=== PATIENT | male | born 1990 | race Caucasian/White ===

== ENCOUNTER 2018-02-26 15:15 | Inpatient (IN) | payer MEDICAID ==
[2018-02-26] MEDS ORDERED: Sodium Chloride 0.9% 1,000 ML IV ONE (15:34)
--- NOTE | 2018-02-26 15:42 | ED Physician Chart ---
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 Pain, A/N/V/D/C, fever, chills, or urinary s/s Historian:: Patient, Friend Review:: Nurse's Note Reviewed ED Review of Systems - Review of Systems General/Constitutional: No fever, No chills, No weight loss, No weakness, No diaphoresis, No edema, No loss of appetite Skin: No skin lesions, No rash, No bruising Head: No headache, Light headed Eyes: No loss of vision, No pain, No diplopia ENT: No earache, No nasal drainage, No sore throat, No tinnitus Neck: No neck pain, No swelling, No thyromegaly, No stiffness, No mass noted Cardio Vascular: No chest pain, No palpitations, No PND, No orthopnea, No edema Pulmonary: No SOB, No cough, No sputum, No wheezing GI: No nausea, No vomiting, No diarrhea, No pain, No melena, No hematochezia, No constipation, No hematemesis G/U: No dysuria, No frequency, No hematuria, No nacturia Musculoskeletal: No bone or joint pain, No back pain, No muscle pain Endocrine: No polyuria, No polydipsia Psychiatric: No prior psych history, No depression, No anxiety, No suicidal ideation, No homicidal ideation, No auditory hallucination, No visual hallucination Hematopoietic: No bruising, No lymphadenopathy Allergic/Immuno: No urticaria, No angioedema Neurological: No syncope, No focal symptoms, Weakness, No paresthesia, No headache, No seizure, Dizziness, No confusion, Vertigo ED Past Medical History - Past Medical History Obtainable: Yes Past Medical History: No significant medical hx Family History: None Social History: Smoker, Alcohol, No Drug Use, Single, Employed Surgical History: None Psychiatricy History: None Medication: Reviewed Family Medical History - Family Member Mother History Unknown: Yes ED Physical Exam - Physical Examination General/Constitutional: Awake, Well-developed, well-nourished, Alert, No distress, GCS 15, Non-toxic appearing, Ambulatory Head: Atraumatic Eyes: Lids, conjuctiva normal, PERRL, EOMI Skin: Nl inspection, No rash, No skin lesions, No ecchymosis, No lymphadenopathy Other Skin comments:: Poor Turgor with Dry Mucous Membranes ENMT: External ears, nose nl, TM canals nl, Nasal exam nl, Lips, teeth, gums nl , Oropharynx nl, Tonsils nl Neck: Nontender, Full ROM w/o pain, No JVD, No nuchal rigidity, No bruit, No mass, No stridor Respiratory: Nl effort/Exclusion, Clear to Auscultation, No Wheeze/Rhonchi/Rales Cardio Vascular: RRR, No murmur, gallop, rubs, NL S1 S2 GI: No tenderness/rebounding/guarding, No organomegaly, No hernia, Normal BS's, Nondistended, No mass/bruits, No McBurney tenderness : No CVA tenderness Extremities: No tenderness or effusion, Full ROM, normal strength in all extremities, No edema, Normal digits & nails Neuro/Psych: Alert/oriented, DTR's symmetric, Normal sensory exam, Normal motor strength, Judgement/insight normal, Mood normal, Normal gait, No focal deficits Misc: Normal back, No paraspinal tenderness ED Labs/Radiology/EKG Results - Lab Results Comments:: ABG: + hyperventilation; Ca+: 10.4 - Radiology Results Comments:: CXR: NAD - EKG Interpretations EKG Time:: 15:41 Rate & Rhythm: 96; NSR Comments:: [place]; non-specific st-t changes ED Septic Shock - . Is Septic Shock (SBP<90, OR Lactate>4 mmol\L) present?: No ED Reassessment (Disposition) - Reassessment Reassessment Condition:: Improved - Diagnosis Diagnosis:: Dx: Hyperventilation Syndrome; Anxiety Reaction; Alcohol Withdrawal; Hypercalcemia; Dehydration; Weakness; Dizziness; Vertigo - Aftercare/Follow up Instructions Aftercare/Follow-Up Instructions:: Counseled pt regarding lab results/diagnosis & need follow up, Counseled pt & family regarding lab results/diagnosis & need follow up - Patient Disposition Discharge/Transfer:: Acute Care w/in this hosp Accepting Physician:: Dr. Bush Time Called:: 1744 Time Responded:: 17:45 Admitted to:: Telemetry Spoke to:: Dr. Bush Admitting Medical Physician:: Dr. Bush Condition at Disposition:: Stable, Improved
[2018-02-26 16:03] LABS: % BASOPHILS 0.1 % (0.0-2.0); % EOSINOPHILS 1.2 % (0.0-5.0); % LYMPHOCYTES 22.4 % (20.0-50.0); % MONOCYTES 7.4 % (2.0-10.0); % NEUTROPHILS 68.9 % (40.0-80.0); EOSINOPHILE ABSOLUTE 0.1 Th/cmm (0.1-0.4); HEMATOCRIT 48.9 % (41.0-60); HEMOGLOBIN 16.8 gm/dL (12-16); LYMPHOCYTE ABSOLUTE 1.5 Th/cmm (1.5-3.0); MEAN CELL VOLUME 89.2 fl (80-99); MEAN CORPUSCULAR HEMOGLOBIN 30.5 pg (26.0-30.0); MEAN CORPUSCULAR HGB CONC 34.2 pg (28.0-36.0); MEAN PLATELET VOLUME 8.3 fl; MONOCYTE ABSOLUTE 0.5 Th/cmm (0.3-1.0); NEUTROPHILE ABSOLUTE 4.4 Th/cmm (1.8-8.0); PLATELET COUNT 258 Th/cmm (150-400); RED BLOOD COUNT 5.49 Mil/cmm (4.30-5.70); RED CELL DISTRIBUTION WIDTH 13.3 % (11.5-20.0); WHITE BLOOD COUNT 6.5 Th/cmm (4.8-10.8)
[2018-02-26 16:11] LABS: INR 0.9 (0.5-1.4); PROTHROMBIN TIME (TEST) 9.3 SECONDS (9.5-11.5)
[2018-02-26 16:18] LABS: ALB/GLOB RATIO 1.6 (1.0-1.8); ALBUMIN 4.7 gm/dL (4.2-5.5); ALKALINE PHOSPHATASE 54 U/L (34-104); AMYLASE SERUM 42 U/L (29-103); ANION GAP 14.7 (7.0-16.0); BILIRUBIN,TOTAL 0.7 mg/dL (0.3-1.0); BUN - UREA NITROGEN 10 mg/dL (7-25); CALCIUM SERUM 10.4 mg/dL (8.6-10.3); CARBON DIOXIDE 24.9 mEq/L (21.0-31.0); CHLORIDE 103 mEq/L (98-107); CHOLESTEROL 134 mg/dL (<200); CREATININE KINASE 261 U/L (30-223); GFR AFRICAN-AMERICAN > 60.0 ml/min (>90); GFR NON AFRICAN-AMERICAN > 60.0 ml/min; GLUCOSE 99 mg/dL (70-105); HDL -HIGH DENSITY LIPOPROTEIN 66 mg/dL (23-92); LIPASE 11 U/L (11-82); POTASSIUM SERUM 3.6 mEq/L (3.5-5.1); SGOT 23 U/L (13-39); SGPT/ALT 14 U/L (7-52); SODIUM SERUM 139 mEq/L (136-145); TOTAL PROTEIN,SERUM 7.7 gm/dL (6.0-8.3); TRIGLYCERIDES 47 mg/dL (<150)
[2018-02-26 16:33] LABS: pH 7.58 (7.35-7.45)
[2018-02-26 16:34] LABS: ALLEN TEST P
[2018-02-26 16:40] LABS: DDIMER QUANT < 100 ng/mL (100-400)
[2018-02-26] MEDS ORDERED: Multivitamin Inj 10 ML, Thiamine HCL 100 MG, Magnesium Sulfate 2 GM, Folic Acid 1 MG in... IV ONE (17:55)
[2018-02-26 20:08] LABS: URINE MICROSCOPIC INDICATED? YES; URINE SOURCE CLEAN C
--- NOTE | 2018-02-26 20:12 | History and Physical ---
History of Present Illness - HPI Chief Complaint: Weakness HPI: 27 y/o male who presents to [facility] ER for one day history of weakness and fatigue, near-syncopal episode. Patient to ETOH use. last drink was 12 hours ago. Patient has increased anxiety and displays withdrawal symptomology. Denies H/as, S/T, neck pain, C/P, SOB, Abd. Pain, A/N/V/D/C, fever , chills, or urinary s/s No PMH Family History: None Social History: Smoker, Alcohol, No Drug Use, Single, Employed Surgical History: None Labs WBC 6.5 H/H 16.8/48.9 plat 258K Na 139 K 3.6 Bun/Cr 10/1.0 glu 99 CK 261 Trop <0.01 BNP <5.0 Chol 134 LDL 57 HDL 66 Amylase 42 Lipase 11 UDS was negative ETOH level was <10 Patient was subsequently admitted to telemetry bed for further evaluation and treatment. 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 Pertinent Hx GI: Report: No Pertinent Hx Psych: Report: Anxiety Musculoskeletal: Report: No Pertinent Hx Rheumatologic: Report: No pertinent Hx Infectious Disease: Report: No Pertinent Hx Renal/: Report: No Pertinent Hx Endocrine: Report: No Pertinent Hx Dermatology: Report: No Pertinent Hx - Past Surgical History Past Surgical History: No pertinent Hx Family Medical History - Family Member Mother History Unknown: Yes Social History Smoke: No Alcohol: Occassional Drugs: None Lives: With Family - Allergies Allergies/Adverse Reactions: Allergies Allergy/AdvReac Type Severity Reaction Status Date / Time diphenhydramine Allergy Verified 02/26/18 16:48 [From Benadryl] Review of Systems - Review of Systems Constitutional: Report: No Significant Eyes: Report: No Significant ENT: Report: No Significant Respiratory: Report: SOB with Excertion Cardiovascular: Report: Chest Pain, Palpitations Gastrointestinal: Report: No Significant Genitourinary: Report: No Significant Musculoskeletal: Report: No Significant Skin: Report: No Significant Neurological: Report: No Significant Physical Exam - Physical Exam HEENT: Report: Ears Nose Throat within normal limits, Pharnyx within normal limits Neck: Report: Within normal limits Cardiovascular Systems: Report: +s1/s2 noted, Regular, Rate and Rhythm, no murmurs noted Respiratory: Report: Breath Sounds are within normal limits, Clear to Auscultation of lung pierson Abdomen: Report: Non-tender to palpation Back: Report: Inspection of back is within normal limits. Extremities: Report: Non-tender to palpation. Skin: Report: Color of skin is within normal limits Neuro/Psych: Report: Mood affect is within normal limits, A+Ox3, CN II-XII intact - Assessment Assessment: Current Active Problems Problem Status Onset SEVERE DYSPNEA WITH DIAPHORESIS Acute Anxiety disorder possible Alcohol Withdrawal Hyperventilation Syndrome Dehydration Hypercalcemia Weakness Fatigue Dizziness - Plan Plan: IV hydration Ativan PRN Repeat ETOH level. Psychiatric evaluation
[2018-02-26 20:25] LABS: URINE BILIRUBIN NEGATIVE (NEGATIVE); URINE BLOOD NEGATIVE (NEGATIVE); URINE CLARITY CLEAR (CLEAR); URINE COLOR YELLOW; URINE GLUCOSE (UA) NEGATIVE (NEGATIVE); URINE KETONE NEGATIVE (NEGATIVE); URINE LEUKOCYTE ESTERASE NEGATIVE (NEGATIVE); URINE NITRATE NEGATIVE (NEGATIVE); URINE PH 7.5 (4.6 - 8.0); URINE PROTEIN NEGATIVE (NEGATIVE); URINE UROBILINOGEN 0.2 E.U./dL (0.2 - 1.0)
[2018-02-26 20:36] LABS: AMPHETAMINE URINE NEGATIVE (NEGATIVE); BARBITURATES URINE NEGATIVE (NEGATIVE); BENZODIAZEPINES QUAL URINE NEGATIVE (NEGATIVE); CANNABINOID THC NEGATIVE (NEGATIVE); COCAINE METABOLITE QUAL URINE NEGATIVE (NEGATIVE); METHADONE URINE NEGATIVE (NEGATIVE); METHAMPHETAMINES QUAL URINE NEGATIVE (NEGATIVE); OPIATES (MORPHINE) QUAL. URINE NEGATIVE (NEGATIVE); PHENCYCLIDINE (PCP) URINE NEGATIVE (NEGATIVE); TRICYCLICS (TCA) QUAL. URINE NEGATIVE (NEGATIVE)
[2018-02-26] MEDS: D5-0.45NS w/20 mEq KCL 1,000 ML IV SCH (20:58)
[2018-02-26 21:28] LABS: URINE BACTERIA NONE SEEN /hpf (NONE SEEN); URINE EPITHELIAL CELLS NONE SEEN /lpf (FEW); URINE RBC NONE SEEN /hpf (0-5); URINE WBC NONE SEEN /hpf (0-5)
[2018-02-27] MEDS ORDERED: Thiamine 100 mg/mL 2mL Vial ONE (01:56)
[2018-02-27] MEDS ORDERED: Multivitamin Inj 10 mL Vial IV ONE (01:58)
[2018-02-27 03:06] VITALS: BP 126/70
[2018-02-27] MEDS: Multivitamin Inj 10 ML, Thiamine HCL 100 MG, Magnesium Sulfate 2 GM, Folic Acid 1 MG in... IV SCH (04:24)
[2018-02-27 07:31] LABS: % BASOPHILS 0.2 % (0.0-2.0); % EOSINOPHILS 4.9 % (0.0-5.0); % MONOCYTES 10.8 % (2.0-10.0); % NEUTROPHILS 55.1 % (40.0-80.0); EOSINOPHILE ABSOLUTE 0.3 Th/cmm (0.1-0.4); HEMOGLOBIN 14.3 gm/dL (12-16); LYMPHOCYTE ABSOLUTE 1.8 Th/cmm (1.5-3.0); MEAN CELL VOLUME 88.1 fl (80-99); MEAN CORPUSCULAR HEMOGLOBIN 30.2 pg (26.0-30.0); MEAN CORPUSCULAR HGB CONC 34.3 pg (28.0-36.0); MEAN PLATELET VOLUME 8.8 fl; MONOCYTE ABSOLUTE 0.7 Th/cmm (0.3-1.0); NEUTROPHILE ABSOLUTE 3.4 Th/cmm (1.8-8.0); RED BLOOD COUNT 4.74 Mil/cmm (4.30-5.70); RED CELL DISTRIBUTION WIDTH 13.6 % (11.5-20.0); WHITE BLOOD COUNT 6.2 Th/cmm (4.8-10.8)
[2018-02-27 07:39] LABS: HEMATOCRIT 41.8 % (41.0-60); PLATELET COUNT 198 Th/cmm (150-400)
[2018-02-27 07:49] LABS: ALB/GLOB RATIO 1.6 (1.0-1.8); ALBUMIN 3.6 gm/dL (4.2-5.5); ALKALINE PHOSPHATASE 41 U/L (34-104); ANION GAP 6.6 (7.0-16.0); BILIRUBIN,TOTAL 0.9 mg/dL (0.3-1.0); BUN - UREA NITROGEN 13 mg/dL (7-25); CALCIUM SERUM 8.9 mg/dL (8.6-10.3); CARBON DIOXIDE 27.3 mEq/L (21.0-31.0); CHLORIDE 108 mEq/L (98-107); GFR AFRICAN-AMERICAN > 60.0 ml/min (>90); GFR NON AFRICAN-AMERICAN > 60.0 ml/min; GLUCOSE 100 mg/dL (70-105); POTASSIUM SERUM 3.9 mEq/L (3.5-5.1); SGOT 17 U/L (13-39); SGPT/ALT 11 U/L (7-52); SODIUM SERUM 138 mEq/L (136-145); TOTAL PROTEIN,SERUM 5.9 gm/dL (6.0-8.3)
--- NOTE | 2018-02-27 08:17 | Diagnostic Imaging Report ---
Portable chest x-ray Time: 1540 History: Chest pain Allowing for portable technique the heart size is normal. No focal pulmonary parenchymal processes. No hilar or mediastinal abnormalities. Impression: No acute abnormalities.
--- NOTE | 2018-02-27 08:23 | General Progress Note ---
Subjective - Review of Systems Service Date: 02/27/18 Subjective: Patient was seen and examined. No acute distress. Patient feels better today. less anxiety today. Objective - Results Result Diagrams: 02/27/18 06:50 02/26/18 15:50 Recent Labs: Laboratory Last Values WBC 6.2 Th/cmm (4.8-10.8) 02/27/18 06:50 RBC 4.74 Mil/cmm (4.30-5.70) 02/27/18 06:50 Hgb 14.3 gm/dL (12-16) 02/27/18 06:50 Hct 41.8 % (41.0-60) D 02/27/18 06:50 MCV 88.1 fl (80-99) 02/27/18 06:50 MCH 30.2 pg (26.0-30.0) H 02/27/18 06:50 MCHC Differential 34.3 pg (28.0-36.0) 02/27/18 06:50 RDW 13.6 % (11.5-20.0) 02/27/18 06:50 Plt Count 198 Th/cmm (150-400) D 02/27/18 06:50 MPV 8.8 fl 02/27/18 06:50 Neutrophils % 55.1 % (40.0-80.0) 02/27/18 06:50 Lymphocytes % 29.0 % (20.0-50.0) 02/27/18 06:50 Monocytes % 10.8 % (2.0-10.0) H 02/27/18 06:50 Eosinophils % 4.9 % (0.0-5.0) 02/27/18 06:50 Basophils % 0.2 % (0.0-2.0) 02/27/18 06:50 PT 9.3 SECONDS (9.5-11.5) L 02/26/18 15:50 INR 0.90 (0.5-1.4) 02/26/18 15:50 D-Dimer < 100 ng/mL (100-400) L 02/26/18 15:50 Specimen Source ARTERIAL 02/26/18 16:16 Sample Site Right Radial 02/26/18 16:16 pH 7.58 (7.35-7.45) H* 02/26/18 16:16 pCO2 25.0 mmHg (35.0-45.0) L 02/26/18 16:16 pO2 160.0 mmHg (80.0-100.0) H 02/26/18 16:16 HCO3 27.0 mEq/L (20.0-26.0) H 02/26/18 16:16 Base Excess 2.6 mEq/L (-3.0-3.0) 02/26/18 16:16 O2 Saturation 100.0 % (92.0-100.0) 02/26/18 16:16 [place] Test P 02/26/18 16:16 Vent Rate A/N 02/26/18 16:16 Inspired O2 21 02/26/18 16:16 Tidal Volume N/A 02/26/18 16:16 PEEP N/A 02/26/18 16:16 Pressure (ins/psv/peep) N/A 02/26/18 16:16 Critical Value D. RAMIRES 02/26/18 16:16 Sodium 139 mEq/L (136-145) 02/26/18 15:50 Potassium 3.6 mEq/L (3.5-5.1) 02/26/18 15:50 Chloride 103 mEq/L (98-107) 02/26/18 15:50 Carbon Dioxide 24.9 mEq/L (21.0-31.0) 02/26/18 15:50 Anion Gap 14.7 (7.0-16.0) 02/26/18 15:50 BUN 10 mg/dL (7-25) 02/26/18 15:50 Creatinine 1.0 mg/dL (0.7-1.3) 02/26/18 15:50 Est GFR ( Amer) > 60.0 ml/min (>90) 02/26/18 15:50 Est GFR (Non-Af Amer) > 60.0 ml/min 02/26/18 15:50 BUN/Creatinine Ratio 10.0 02/26/18 15:50 Glucose 99 mg/dL (70-105) 02/26/18 15:50 Calcium 10.4 mg/dL (8.6-10.3) H 02/26/18 15:50 Total Bilirubin 0.7 mg/dL (0.3-1.0) 02/26/18 15:50 AST 23 U/L (13-39) 02/26/18 15:50 ALT 14 U/L (7-52) 02/26/18 15:50 Alkaline Phosphatase 54 U/L (34-104) 02/26/18 15:50 Creatine Kinase 261 U/L (30-223) H 02/26/18 15:50 CK-MB (CK-2) 4.0 ng/mL (0.6-6.3) 02/26/18 15:50 Troponin I < 0.01 ng/mL (0.01-0.05) L 02/26/18 15:50 B-Natriuretic Peptide < 5.0 pg/mL (5.0-100.0) L 02/26/18 15:50 Total Protein 7.7 gm/dL (6.0-8.3) 02/26/18 15:50 Albumin 4.7 gm/dL (4.2-5.5) 02/26/18 15:50 Globulin 3.0 gm/dL 02/26/18 15:50 Albumin/Globulin Ratio 1.6 (1.0-1.8) 02/26/18 15:50 Triglycerides 47 mg/dL (<150) 02/26/18 15:50 Cholesterol 134 mg/dL (<200) 02/26/18 15:50 LDL Cholesterol Direct 57 mg/dL (75-193) L 02/26/18 15:50 HDL Cholesterol 66 mg/dL (23-92) 02/26/18 15:50 Amylase 42 U/L (29-103) 02/26/18 15:50 Lipase 11 U/L (11-82) 02/26/18 15:50 Urine Source CLEAN C 02/26/18 16:30 Urine Color YELLOW 02/26/18 16:30 Urine Clarity CLEAR (CLEAR) 02/26/18 16:30 Urine pH 7.5 (4.6 - 8.0) 02/26/18 16:30 Ur Specific Becket <= 1.005 (1.005-1.030) 02/26/18 16:30 Urine Protein NEGATIVE mg/dL (NEGATIVE) 02/26/18 16:30 Urine Glucose (UA) NEGATIVE mg/dL (NEGATIVE) 02/26/18 16:30 Urine Ketones NEGATIVE mg/dL (NEGATIVE) 02/26/18 16:30 Urine Blood NEGATIVE (NEGATIVE) 02/26/18 16:30 Urine Nitrate NEGATIVE (NEGATIVE) 02/26/18 16:30 Urine Bilirubin NEGATIVE (NEGATIVE) 02/26/18 16:30 Urine Urobilinogen 0.2 E.U./dL (0.2 - 1.0) 02/26/18 16:30 Ur Leukocyte Esterase NEGATIVE (NEGATIVE) 02/26/18 16:30 Urine RBC NONE SEEN /hpf (0-5) 02/26/18 16:30 Urine WBC NONE SEEN /hpf (0-5) 02/26/18 16:30 Ur Epithelial Cells NONE SEEN /lpf (FEW) 02/26/18 16:30 Urine Bacteria NONE SEEN /hpf (NONE SEEN) 02/26/18 16:30 Urine Opiates Screen NEGATIVE (NEGATIVE) 02/26/18 16:30 Urine Methadone Screen NEGATIVE (NEGATIVE) 02/26/18 16:30 Ur Barbiturates Screen NEGATIVE (NEGATIVE) 02/26/18 16:30 Ur Tricyclics Screen NEGATIVE (NEGATIVE) 02/26/18 16:30 Ur Phencyclidine Scrn NEGATIVE (NEGATIVE) 02/26/18 16:30 Amphetamines Screen NEGATIVE (NEGATIVE) 02/26/18 16:30 U Methamphetamines Scrn NEGATIVE (NEGATIVE) 02/26/18 16:30 U Benzodiazepines Scrn NEGATIVE (NEGATIVE) 02/26/18 16:30 U Cocaine Metab Screen NEGATIVE (NEGATIVE) 02/26/18 16:30 U Cannabinoids Screen NEGATIVE (NEGATIVE) 02/26/18 16:30 Ethyl Alcohol < 10 mg/dL (0-10) 02/26/18 15:50 - Physical Exam Vitals and I&O: Vital Signs Temp 96.9 F 02/27/18 06:35 Pulse 77 02/27/18 06:35 Resp 18 02/27/18 06:35 BP 117/58 02/27/18 06:35 Pulse Ox 99 02/27/18 06:35 Intake & Output 02/26/18 02/27/18 02/27/18 18:59 06:59 18:59 Weight (lbs) 79.379 kg Other: # Voids 1 # Bowel Movements 0 Weight Source Bedscale Active Medications: Current Medications Potassium Chloride/Dextrose/Sod Cl (D5-0.45ns W/20 Meq Kcl) 1,000 mls @ 100 mls /hr IV .Q10H MAVIS Stop: 04/27/18 20:14 Last Admin: 02/26/18 20:58 Dose: 100 mls/hr Multivitamins/Minerals 10 ml/Thiamine HCl 100 mg/ Magnesium Sulfate 2 gm/ Folic Acid 1 mg / Sodium Chloride 1,015.2 mls @ 75 mls/hr IV Q24H [facility] Stop: 04/27/18 22:55 Last Admin: 02/27/18 04:24 Dose: Not Given Lorazepam (Ativan) 1 mg IVP Q4HR PRN; Protocol PRN Reason: Agitation Stop: 04/27/18 22:55 General: Alert, Oriented x3, No acute distress HEENT: Atraumatic, PERRLA, EOMI Neck: Supple Cardiovascular: Regular rate, Normal S1, Normal S2 Lungs: Clear to auscultation Abdomen: Bowel sounds Extremities: no Clubbing, no Cyanosis, no Edema Neurological: Normal gait, Normal speech Assessment/Plan - Problem List Patient Problems: All Active Problems SEVERE DYSPNEA WITH DIAPHORESIS (Acute) - Assessment Assessment: Current Active Problems Problem Status Onset SEVERE DYSPNEA WITH DIAPHORESIS Acute Alcohol Withdrawal Hyperventilation Syndrome Anxiety Disorder Dehydration Hypercalcemia Weakness Fatigue Dizziness - Plan Plan: IV hydration Ativan PRN Repeat ETOH level.
[2018-02-27] MEDS: D5-0.45NS w/20 mEq KCL 1,000 ML IV SCH (09:59)
[2018-02-28] MEDS: D5-0.45NS w/20 mEq KCL 1,000 ML IV SCH (01:01)
[2018-02-28] MEDS: Multivitamin Inj 10 ML, Thiamine HCL 100 MG, Magnesium Sulfate 2 GM, Folic Acid 1 MG in... IV SCH (15:34)
--- NOTE | 2018-03-01 13:17 | Progress Notes ---
DATE: 02/28/2018 HPI: A 27-year-old male suffering from anxiety ___and__ complaining of muscle aches, body aches, complaint that he got some chest pain, came to the hospital. The patient alludes to depression due to his very high anxiety. States "not great and had a lot of racing thoughts." Appetite "okay." The patient states he feels __more anxious due to___ change in job recently, recently moved to a different city, recently history anxiety. No suicide history, no suicide attempt. Medications were noted. I do talk to the patient about starting on medications to address anxiety and depression, but he does not want to take anything at this time because he feels that may interfere with his job. FAMILY HISTORY: Noncontributory. SOCIAL HISTORY: __pt___ not , but he has a girlfriend and a child. The patient denying cannabis use and smokes cigarettes. He binges on alcohol. 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 States that when he has to work, he does not drink the night before. 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 Risk and benefits were discussed he wants therapy. MENTAL STATUS EXAMINATION: Stated age. Fair eye contact. Speech within normal limits. Multiple tattoos. Mood "Anxious." Affect constricted. Thought processes were linear. No SI, no SI, no intent, no plan. No overt psychotic symptoms. Insight and judgment fair. He wants help. PROVISIONAL DIAGNOSIS: Anxiety, unspecified; rule out generalized anxiety disorder; also panic disorder; nicotine use disorder, unspecified; alcohol use disorder, unspecified; substance induced mood disorder. __Med hx:___ Please see full H and P. RECOMMENDATIONS AND PLAN: I did recommend an offer to start him on medications such as Zoloft or Prozac. The patient rejected this idea stating his work as a wound care specialist, but was motivated for outpatient therapy. We will contact shoe parts caser, social [place] [address] criteria JOB# [id number] [facility]
--- NOTE | 2018-03-05 12:30 | Discharge Summary ---
DATE OF DISCHARGE: 02/28/2018 ATTENDING DICTATING: Dr. Rizwan Root. PRELIMINARY DIAGNOSES: 1. Possible alcohol withdrawal. 2. Anxiety disorder. 3. Hyperventilation syndrome. 4. Dehydration. 5. Hypercalcemia. 6. Weakness and fatigue. 7. Dizziness. DISCHARGE DIAGNOSES: 1. Possible alcohol withdrawal. 2. Anxiety disorder. 3. Hyperventilation syndrome. 4. Dehydration. 5. Hypercalcemia. 6. Weakness and fatigue. 7. Dizziness. BRIEF HISTORY OF PRESENT ILLNESS: This is a 27-year-old male who presents to [facility] ER for 1 day history of weakness and fatigue with a near syncopal episode. The patient states that his last drink was 12 hours ago. He presents to the ER with increased anxiety and displays withdrawal symptomatology. Denies any headaches, denies any chest pain, shortness of breath. Denies any abdominal pain, nausea, vomiting, diarrhea, or constipation. Denies any fever, chills, or urinary symptoms. Preliminary lab work revealed white count was normal at 6.5, hemoglobin 16.8, hematocrit 48.9, and platelets 258,000. Sodium was normal at 139, potassium 3.6, BUN was normal at 10, creatinine was normal at 1.0. Glucose was 99. CK was 261. Troponin I was less than 0.01. BNP was normal, less than 5, cholesterol was 134, LDL was 57, HDL was 66, amylase 42, lipase 11. Urine drug screen was negative. His alcohol level was also less than 10. The patient was subsequently admitted for further evaluation and treatment. HOSPITAL COURSE: The patient improved during his hospital stay. He was seen and evaluated by Psychiatry. Please see dictated report. Repeat lab work was done the following day showing alcohol level was normal. White count also was repeated. CBC was repeated as well as chemistry panels repeated and also was negative or normal. The patient was subsequently discharged in stable condition, was to follow up with his regular physician in 2-3 days. JOB# [id number]
== END 2018-02-28 18:44 | disposition home or self-care (01) | DRG 775 ==
LOC: EDSEX 15:15 → ER 15:15 → TELE 18:00
PROVIDERS: ADMIT Family Medicine; ATTEND Family Medicine
DX: F10.239 Alcohol dependence with withdrawal, unspecified (principal); E66.2 Morbid (severe) obesity with alveolar hypoventilation; E83.52 Hypercalcemia; F15.14 Other stimulant abuse with stimulant-induced mood disorder; E86.0 Dehydration; F41.9 Anxiety disorder, unspecified; F17.210 Nicotine dependence, cigarettes, uncomplicated; Z68.30 Body mass index [BMI] 30.0-30.9, adult
CPT/HCPCS: 36415-UA; 36600-90; 71045-TC; 80053-TC; 80061-TC; 80307; 80320-TC; 81001-TC; 82150-TC; 82550-TC; 82553; 82803-TC; 83690-TC; 83880-TC; 84484-TC; 85025-TC; 85379-TC; 85610-TC; 90784; 93005; 94760; J3411; J3475; J7030; X6226; X6598